=== PATIENT | male | born 1970 | race Caucasian/White ===

== ENCOUNTER → 2018-12-09 | Outpatient (CLI) | payer BC | END | disposition home or self-care (01) | LOC: PREOP 05:37 | PROVIDERS: ATTEND Pediatrics | DX: Z01.818 Encounter for other preprocedural examination (principal) ==

== ENCOUNTER 2018-12-16 07:31 | Day surgery (SDC) | payer BC ==
[2018-12-16] VITALS (8 sets, daily range): BP systolic 114–141; BP diastolic 65–102
[~2018-12-16] VITALS: Ht 182.9 cm; Wt 95.0 kg
[2018-12-16] MEDS ORDERED: NS IV 500 ML 500 ML ONE (07:36)
[2018-12-16] MEDS ORDERED: fentaNYL INJECTION 100 MCG/2 ML AMP ONE ×3 (08:26→08:27)
[2018-12-16] MEDS ORDERED: MIDAZOLAM 2 MG/2 ML (VERSED) VIAL ONE ×4 (08:27)
--- NOTE | 2018-12-16 08:28 | Progress Note-Pre Operative ---
Pre-Operative Progress Note H&P Reviewed The H&P was reviewed, patient examined and no changes noted. Date Seen by Provider: Dec 16, 2018 Time Seen by Provider: 08:28 Date H&P Reviewed: Dec 16, 2018 Time H&P Reviewed: 08:28 Pre-Operative Diagnosis: bowel habit changes SAGE COSTA MD Dec 16, 2018 08:28
--- NOTE | 2018-12-16 09:06 | Endoscopy Procedure Report ---
Colonoscopy Procedure Performed: Colonoscopy Pre-Operative Diagnosis: chnage in bowle habits Post-Operative Diagnosis: diverticulosis Dance Coach: None. Indications for Procedure: bowel habit change Procedure Details: Informed consent was obtained, the risks, benefits and alternatives to the procedure were explained to the patient. The Shahram Basilio, a 48 yr old male, was brought to to surgery area, sedated with 6 mg of Versed and 100 ug of fentanyl. He was placed in the left lateral decubitus position. Under direct visualization the scope was passed easily to the cecum. Cecum is identified by landmarks. Scope was carefully withdrawn. Findings: Ascending Colon: none Transverse Colon: none Descending/Sigmoid: sigmoid diverticular changes Rectum: none Estimated Blood Loss: 0mL Specimens: 0 Complications: None; patient tolerated the procedure well. Final Diagnosis: diverticulosis SAGE COSTA MD Dec 16, 2018 09:06
== END 2018-12-16 09:50 | disposition home or self-care (01) ==
LOC: ENDO 07:31
PROVIDERS: ATTEND Pediatrics
DX: K57.30 Diverticulosis of large intestine without perforation or abscess without bleeding (principal); J30.1 Allergic rhinitis due to pollen; F17.290 Nicotine dependence, other tobacco product, uncomplicated; Z80.0 Family history of malignant neoplasm of digestive organs